=== PATIENT | female | born 1955 | race Caucasian/White ===

== ENCOUNTER 2021-03-08 13:56 | Emergency (ER) | payer MEDICARE ==
[~2021-03-08 13:56] MED LIST: AMBIEN10 MG PO; BENTYL 20MG TAB20 MG PO; COUMADIN2 MG PO; ECOTRIN81 MG PO; FLEXERIL 10 MG10 MG PO; LODINE CAP 300300 MG PO; NEURONTIN 300300 MG PO; NOLVADEX 10 MG10 MG PO; PRINIVIL10 MG PO; SYNTHROID112 MCG PO; VITAMIN D3400 UNIT PO; XGEVA 120120 MG/1.7 SC; ZOFRAN ODT 4 MG4 MG PO
== END 2021-03-08 14:12 | disposition left against medical advice (07) ==
LOC: ER1 13:56
DX: Z53.21 Procedure and treatment not carried out due to patient leaving prior to being seen by health care provider (principal)

== ENCOUNTER → 2021-05-15 | Outpatient (CLI) | payer MEDICARE | LOC: KOH-I 09:47 | DX: C50.411 Malignant neoplasm of upper-outer quadrant of right female breast (principal); C79.51 Secondary malignant neoplasm of bone | CPT/HCPCS: 73502 ==